=== PATIENT | female | born 1960 | race Caucasian/White ===

== ENCOUNTER 2017-02-11 17:14 | Emergency (ER) | payer OTHER | END 2017-02-11 20:14 | disposition home or self-care (01) | LOC: ER 17:14 | DX: M51.14 Intervertebral disc disorders with radiculopathy, thoracic region (principal); M54.6 Pain in thoracic spine; W10.9XXA Fall (on) (from) unspecified stairs and steps, initial encounter; Y92.009 Unspecified place in unspecified non-institutional (private) residence as the place of occurrence of the external cause; Z79.899 Other long term (current) drug therapy | CPT/HCPCS: 71250; 72128; 93005; 99283-25 ==